=== PATIENT | male | born 1980 | race Caucasian/White ===

== ENCOUNTER 2016-09-28 03:52 | Emergency (ER) | payer OTHER ==
[~2016-09-28] VITALS: Ht 188 cm; Wt 88.5 kg
[2016-09-28 04:03] VITALS: BP 174/105
[2016-09-28] MEDS ORDERED: LEXAPRO20 MG PO (04:08)
[2016-09-28] MEDS ORDERED: VYVANSE70 MG (04:12)
== END 2016-09-28 05:51 | disposition home or self-care (01) ==
LOC: ER 03:52
DX: S51.811A Laceration without foreign body of right forearm, initial encounter (principal); F17.210 Nicotine dependence, cigarettes, uncomplicated; F11.10 Opioid abuse, uncomplicated; W25.XXXA Contact with sharp glass, initial encounter; Y93.89 Activity, other specified; Y92.89 Other specified places as the place of occurrence of the external cause; Y99.8 Other external cause status